=== PATIENT | male | born 1960 | race Caucasian/White ===

== ENCOUNTER → 2018-10-09 07:06 | Outpatient (CLI) | payer BC, SELFPAY ==
[2018-10-09 09:22] LABS: BUN Creatinine Ratio 21.3 (6-22); Blood Urea Nitrogen 17 mg/dL (9-20); Calcium 9.5 mg/dL (8.4-10.2); Carbon Dioxide 24 mmol/L (22-32); Chloride 104 mmol/L (98-107); Cholesterol 223 mg/dL (140-199); Estimated Glomerular Filt Rate > 60.0 mL/min (>60); Glucose 114 mg/dL (80-110); HDL Cholesterol 28 mg/dL (40-60); HEMOLYSIS < 15 (0-50); LDL Cholesterol Calculated 148 mg/dL (<100); Potassium 3.8 mmol/L (3.4-5.1); Sodium 138 mmol/L (137-145); Triglycerides 235 mg/dL (35-150)
[2018-10-09 09:47] LABS: Microalbumin Urine Random 6.3 mg/dL (0-1.6)
[2018-10-09 10:07] LABS: Microalbumi Creatinin Ratio Ur 13.9 ug/mg CR (<30)
[2018-10-09 10:08] LABS: Creatinine Urine Random 451.4 mg/dL
== END ==
PROVIDERS: PCP Registered Nurse; Visit Provider Registered Nurse
DX: I10 Essential (primary) hypertension (principal)
CPT/HCPCS: 36415; 80048; 80061; 82043; 82570

== ENCOUNTER → 2019-03-01 08:10 | Outpatient (CLI) | payer BC, SELFPAY ==
[2019-03-01 08:58] LABS: Cholesterol 116 mg/dL (140-199); HDL Cholesterol 28 mg/dL (40-60); LDL Cholesterol Calculated 52 mg/dL (<100); Triglycerides 178 mg/dL (35-150)
== END ==
PROVIDERS: Visit Provider Registered Nurse
DX: E78.5 Hyperlipidemia, unspecified (principal)
CPT/HCPCS: 36415; 80061

== ENCOUNTER → 2019-05-24 10:08 | Outpatient (CLI) | payer BC, OTHER, SELFPAY ==
[2019-05-24 11:10] LABS: Hemoglobin 16.3 g/dL (13.5-17.5); Mean Corpuscular HGB Conc 35.5 % (30-36); Mean Corpuscular Hemoglobin 30.2 PG (26-34); Platelet Count 163 X10^3/uL (150-400); Red Blood Cell Count 5.41 X10^6/uL (4.5-5.9); Red Cell Distribution Width 13.4 % (11.6-14.8); White Blood Cell Count 7.5 X10^3/uL (4.5-11.0)
[2019-05-24 11:59] LABS: Alanine Aminotransferase 49 IU/L (21-72); Albumin 4.8 g/dL (3.5-5.0); Albumin Globulin Ratio 1.8 (1.0-2.8); Alkaline Phosphatase 47 U/L (38-126); Aspartate Aminotransferase 34 IU/L (17-59); BUN Creatinine Ratio 16.3 (6-22); Bilirubin Total 0.6 mg/dL (0.2-1.3); Blood Urea Nitrogen 13 mg/dL (9-20); Calcium 10.4 mg/dL (8.4-10.2); Carbon Dioxide 28 mmol/L (22-32); Chloride 98 mmol/L (98-107); Estimated Glomerular Filt Rate > 60.0 mL/min (>60); Globulin 2.7 g/dL (1.7-4.1); Glucose 99 mg/dL (80-110); HEMOLYSIS < 15 (0-50); Potassium 4.4 mmol/L (3.4-5.1); Sodium 137 mmol/L (137-145); Total Protein 7.5 g/dL (6.3-8.2)
[2019-05-24 12:16] LABS: Vitamin D 25 Hydroxy (D3) 28.9 ng/mL (30.0-100.0)
== END ==
PROVIDERS: Visit Provider Student in an Organized Health Care Education/Training Program
DX: Z12.5 Encounter for screening for malignant neoplasm of prostate (principal); B18.2 Chronic viral hepatitis C; D75.1 Secondary polycythemia; E78.5 Hyperlipidemia, unspecified; I10 Essential (primary) hypertension; Z87.891 Personal history of nicotine dependence
CPT/HCPCS: 36415; 80053; 82306; 85027; G0103

== ENCOUNTER 2019-09-13 08:11 | Day surgery (SDC) | payer BC, OTHER, SELFPAY ==
[2019-09-13] MEDS: SODIUM CHLORIDE 0.9% 1,000 ML 200 ML IV (08:34)
[2019-09-13 08:40] VITALS: BP 117/80; PULSE 91; RESP 20; TEMP 36.6; O2SAT 96; BMI 30.4
--- NOTE | 2019-09-13 09:07 | PM.HP.1 ---
History of Present Illness History of Present Illness Date Patient Seen: 09/13/19 Time Patient Seen: 09:07 Chief complaint: [id number] Narrative: This is a 59-year-old man who has never had a screening colonoscopy. He denies any history of melena, hematochezia, unexplained abdominal pain, unexplained weight loss. He has been treated for hepatitis C and reportedly cleared. He has high blood pressure, polycythemia vera, high cholesterol, kidney stones, and has had an inguinal hernia repair. Says he is overall well, and denies any chest pain or other concerning symptoms at this time. ROS: Thirteen system review is otherwise negative other than as mentioned below and in HPI. PE: GENERAL: Well groomed and cooperative. Appears stated age. Answers questions promptly and appropriately. Vital signs noted. HENT: Normocephalic, atraumatic. Hearing intact. Oral mucosa is pink and moist. EYES: Conjunctiva pink, sclera white, no periorbital swelling. CARDIOVASCULAR: Regular rate. No pedal edema. RESPIRATORY: Non-tachypneic, breathing comfortably on room air. GASTROINTESTINAL: Abdomen soft and non-distended GENITALURINARY: No flank tenderness. MUSCULOSKELETAL: Equal tone and mass bilaterally. SKIN: Warm, dry, soft, appropriate color for ethnicity. No other lesions, rashes, or wounds. NEURO: Alert and Oriented X 3. No gross sensory deficits, or cognitive issues. PSYCH: Appropriate affect and mood. Patient History Medical History (Updated 09/13/19 @ 09:09 by Kasie Alvarado MD) Kidney stones (Inactive ~1986) Shoulder pain (Chronic) Surgical History (Updated 05/27/19 @ 22:12 by Reny Fleming) Anesthesia (Resolved) History of hernia repair (Resolved ~1964) History of hernia repair (Resolved ~1997) Family & Social History Social History: household members spouse Tobacco & Substance use: Smoking Status Former smoker alcohol intake former Meds Home Medications and Allergies Home Medications Medication Instructions Recorded Confirmed Type aspirin 650 mg tablet,delayed 650 mg PO QDAY PRN #0 03/04/19 09/13/19 History release ibuprofen 400 mg tablet 800 mg PO QDAY PRN #0 03/04/19 09/13/19 History rosuvastatin 20 mg tablet 20 mg PO DAILY #90 tab 05/07/19 09/13/19 Rx sildenafil 100 mg tablet 100 mg PO DAILY PRN #40 tab 05/24/19 09/13/19 Rx sodium,potassium,mag sulfates 17.5 177 ml PO DAILY #354 ml 08/19/19 09/13/19 Rx gram-3.13 gram-1.6 gram oral soln lisinopril 20 1 tab PO DAILY #90 tab 08/26/19 09/13/19 Rx mg-hydrochlorothiazide 25 mg tablet Allergies Allergy/AdvReac Type Severity Reaction Status Date / Time No Known Drug Allergies Allergy Verified 09/13/19 08:27 Exam Vital Signs (past 8 hours): - 09/13/19 08:40 Temperature 98 F Pulse Rate 91 H Respiratory Rate 20 Blood Pressure 117/80 Pulse Oximetry 96 Oxygen Delivery Method Room Air Assessment & Plan Assessment and plan (1) At average risk for colon cancer: Current visit: Yes Status: Acute (2) Encounter for screening colonoscopy: Current visit: Yes Status: Acute Assessment & Plan narrative: Risks and benefits of screening colonoscopy and possible polypectomy were discussed with the patient including risk of bleeding, perforation, need for additional procedures, risks of anesthesia. The patient desires to proceed with the colonoscopy procedure. Time Spent With Patient Time with patient: 15-24 minutes Quality VTE Deep Vein Thrombosis/Pulmonary Embolism Present on Admission: No
--- NOTE | 2019-09-13 09:12 | PM.OP.ENDO ---
Operative Date/Time/Diagnoses Date of procedure: 09/13/19 Time of procedure: 09:12 Pre-op diagnosis: Average risk for colon cancer, never had screening colonoscopy Post-op diagnosis: same (Normal colon) Procedure & Clinicians Study performed: Screening colonoscopy Same procedure as scheduled: Yes Indications: Average risk for colon cancer, never had a colonoscopy Surgeon: Kasie Alvarado Procedure Notes SCOAP/Timeout: Performed Procedure in detail: The patient was brought to the room and placed in left lateral decubitus position with all bony prominences padded. A time-out was performed and then the patient was given procedural sedation starting with 3 mg of Versed and 100 mcg of fentanyl. A total of 5 mg of Versed and 150 micro g of fentanyl were given for the entire procedure. Vitals were monitored throughout the procedure and remained stable. Once adequately sedated the procedure was begun. A rectal exam was performed revealing no abnormalities. The colonoscope was then introduced to the rectum and advanced to the cecum in the usual fashion. The cecum was identified by the appendiceal orifice, the mucosal tri-fold, and the ileocecal valve. The scope was then retracted while rotating side to side and examining each mucosal fold. At the conclusion of the procedure retroflexion was performed and small grade 1-2 internal hemorrhoids without stigmata of bleeding were seen. The scope was then withdrawn from the rectum the procedure was concluded. The patient tolerated the procedure well and was transferred to the PACU in stable condition. Scope withdrawal time: 8 Sedation minutes: 18 Specimen(s): none sent Complications: none Impression: Normal colon Post-procedure Recommendations: Colonscopy in 10 years Follow up: as needed Disposition: PACU
[2019-09-13] MEDS: fentaNYL 250 MCG/5 ML INJ IV (09:35)
[2019-09-13] MEDS: MIDAZOLAM 5 MG/5 ML VIAL IV (09:35)
[2019-09-13 09:36] VITALS: BP 104/76; PULSE 77; RESP 14; TEMP 36.6; O2SAT 91
[2019-09-13 09:41] VITALS: BP 108/73; PULSE 77; RESP 16; O2SAT 93
[2019-09-13 09:46] VITALS: BP 104/78; PULSE 78; RESP 15; O2SAT 92
[2019-09-13 09:52] VITALS: BP 98/71; PULSE 88; RESP 11; O2SAT 95
[2019-09-13 10:00] VITALS: BP 110/80; PULSE 80; RESP 12; TEMP 36.6; O2SAT 96
== END 2019-09-13 10:09 | disposition home or self-care (01) ==
PROVIDERS: PCP Student in an Organized Health Care Education/Training Program; Referring Provider Surgery; Visit Provider Surgery
PROC: 0DJD8ZZ Inspection of Lower Intestinal Tract, Via Natural or Artificial Opening Endoscopic (ICD-10-PCS; CPT 45378; principal; 2019-09-13 09:15)
DX: Z12.11 Encounter for screening for malignant neoplasm of colon (principal); K64.0 First degree hemorrhoids
CPT/HCPCS: 45378; 99152; J2250; J3010

== ENCOUNTER → 2020-11-11 14:46 | Outpatient (CLI) | payer BC, OTHER, SELFPAY ==
[2020-11-11] MEDS: COVID-19 VACC #1, MRNA(MOD) 100 MCG/0.5 ML VIAL IM (15:01)
== END ==
PROVIDERS: PCP Student in an Organized Health Care Education/Training Program; Visit Provider Internal Medicine
DX: Z23 Encounter for immunization (principal)
CPT/HCPCS: 0011A; 91301

== ENCOUNTER → 2020-12-09 14:33 | Outpatient (CLI) | payer BC, OTHER, SELFPAY ==
[2020-12-09] MEDS: COVID-19 VACC #2, MRNA(MOD) 100 MCG/0.5 ML VIAL IM (14:39)
== END ==
PROVIDERS: PCP Student in an Organized Health Care Education/Training Program; Visit Provider Internal Medicine
DX: Z23 Encounter for immunization (principal)
CPT/HCPCS: 0012A; 91301

== ENCOUNTER → 2021-01-30 09:45 | Outpatient (CLI) | payer BC, OTHER, SELFPAY ==
--- NOTE | 2021-01-30 09:47 | DI.RAD.S_ITS ---
PROCEDURE: XR LUMBAR SPINE 2-3V INDICATIONS: back pain TECHNIQUE: To views of the lumbar spine were acquired. COMPARISON: None. FINDINGS: Bones: 5 [id number] vertebrae are present. There is normal bony alignment. No vertebral body compression fractures. No suspicious bony lesions. Lower lumbar facet arthropathy. Soft tissues: Overlying bowel gas pattern is normal. No suspicious soft tissue calcifications. Aortic atherosclerosis IMPRESSION: Lower lumbar facet arthropathy. No evidence acute bony abnormality of the lumbar spine. If clinical suspicion and/or symptoms persist, further assessment with repeat plain films, or advanced imaging (e.g., CT, MRI, or bone scan) may be helpful for further assessment. Dictated by: Fadi Bermeo M.D. on 01/30/2021 at 9:10 Approved by: Fadi Bermeo M.D. on 01/30/2021 at 9:13
== END ==
PROVIDERS: PCP Student in an Organized Health Care Education/Training Program; Referring Provider Physician Assistant; Visit Provider Physician Assistant
DX: M54.9 Dorsalgia, unspecified (principal); M47.816 Spondylosis without myelopathy or radiculopathy, lumbar region
CPT/HCPCS: 72100

== ENCOUNTER → 2021-04-17 14:16 | Outpatient (CLI) | payer BC, OTHER, SELFPAY ==
--- NOTE | 2021-04-17 14:17 | DI.MRI.S_ITS ---
PROCEDURE: MR LUMBAR SPINE WO CON INDICATIONS: Sciatica, right side TECHNIQUE: Noncontrast sagittal T1 spin echo and T2 fast echo, sagittal STIR, axial T1 and T2 fast spin echo through the lumbar spine. In cases with scoliosis, additional coronal T2 fast spin echo may be performed. COMPARISON: [facility], CR, XR LUMBAR SPINE 2-3V, 01/30/2021, 9:48. FINDINGS: Image quality: Excellent. Alignment and Curvature: There is normal bony alignment. Bone Marrow: Marrow is of normal overall signal. Increased T1 and T2 signal is present at L1 most suggestive of hemangioma. No acute vertebral body compression fractures. Spinal Cord: Conus medullaris terminates at the L1 level. Visualized cord demonstrates normal signal and size. Paraspinous Soft Tissues: No paravertebral masses. Discs: Mild desiccation is present throughout the lumbar spine. L1-L2: Minimal disc bulge without spinal stenosis or foraminal narrowing. Facet and ligamentum flavum hypertrophy as well as minimal epidural lipomatosis is present. L2-L3: No disc bulge, spinal stenosis or foraminal narrowing. Mild facet and ligamentum flavum hypertrophy as well as minimal epidural lipomatosis is present. L3-L4: Minimal disc bulge without spinal stenosis. Mild bilateral foraminal narrowing with facet and ligamentum flavum hypertrophy. Mild epidural lipomatosis. L4-L5: Minimal disc bulge without spinal stenosis. Minimal bilateral foraminal narrowing with facet and ligamentum flavum hypertrophy. L5-S1: Mild disc bulge with posterior right posterior paracentral extrusion measuring approximately 1.5 cm compromising the exiting nerve roots. There is indentation on the anterior thecal sac. Mild bilateral foraminal narrowing with facet hypertrophy. IMPRESSION: 1. L5-S1 right posterior paracentral extrusion as above. 2. Multilevel minimal to mild foraminal narrowing secondary to early changes of facet arthropathy. Dictated by: Uyen Disla M.D. on 04/19/2021 at 9:08 Approved by: Uyen Disla M.D. on 04/19/2021 at 9:12
== END ==
PROVIDERS: PCP Student in an Organized Health Care Education/Training Program; Referring Provider Student in an Organized Health Care Education/Training Program; Visit Provider Student in an Organized Health Care Education/Training Program
DX: M51.17 Intervertebral disc disorders with radiculopathy, lumbosacral region (principal); M47.26 Other spondylosis with radiculopathy, lumbar region; M47.27 Other spondylosis with radiculopathy, lumbosacral region; M48.061 Spinal stenosis, lumbar region without neurogenic claudication; M48.07 Spinal stenosis, lumbosacral region
CPT/HCPCS: 72148

== ENCOUNTER 2021-11-04 16:45 | Outpatient (RCR) | payer BC, OTHER, SELFPAY ==
--- NOTE | 2021-10-20 17:30 | PT.OIE ---
Current Diagnoses Stiffness of other specified joint, not elsewhere classified (10/20/21) Intervertebral disc disorders with radiculopathy, lumbar region (10/20/21) Sciatica, right side (10/20/21) Past Medical History (Last Reviewed 08/03/20 @ 09:49 by HILDA Edomnds) History of hernia repair (~1964) History of hernia repair (~1997) Kidney stones (~1986) Shoulder pain Past Surgical History (Last Reviewed 08/03/20 @ 09:49 by HILDA Edmonds) Anesthesia History of hernia repair (~1964) History of hernia repair (~1997) Visit Care Team Role Provider Type Jey Rothman MD Attending Provider Physician Family Provider Primary Care Provider Referring Provider Specialty: Internal Medicine Address: [address] [place] [address], [address], [facility] Email: [email or web address] Physical Therapy Initial Evaluation PT-OP-A Visit Information Start: 10/20/21 17:32 Freq: Status: Active Protocol: Document 10/20/21 16:45 DCW (Rec: 10/20/21 17:36 DC [id number]) Out-Patient Physical Therapy Visit Information Visit Information Visit Type Initial Evaluation Visit Start Time 16:45 Visit Stop Time 17:30 Total Visit Minutes 45 Visit Number 1 Number of JANITOR HEAD Visits 0 Evaluation Information Evaluation Date 10/20/21 PT-OP-B Current Condition Start: 10/20/21 17:32 Freq: Status: Active Protocol: Document 10/20/21 16:45 DCW (Rec: 10/20/21 17:47 DC [id number]) Current Condition History of Current Condition Onset Date 3-4 year history Current Complaints Low back pain with right sciatica History of Current Condition Pt is a 61 year old male presenting with a multi-year history of low back pain. Pt notes that his pain began 3-4 years ago, but last fall became substantially worse. His PCP referred him to Dr Almanzar, who ordered an MRI, and, per pt, found a bulging disc at L5. Pt was referred to PT, however has had difficulty scheduling appointments, notes it has probable been 2-3 months, and in the mean time, has gotten significantly better with a combination of steroid injections and using gabapentin. Pt is now 2-3/10, down from 7-8/10. Notes he frequently has to change positions, going from sitting to standing and back after ~30 minutes. Notes he is unable to lay in any position except for left sidelying due to back pain. Treatment Goals Patient/Caregiver Goals I want to be able to geet out in the yard and do some work without worrying about back pain. PT-OP-C Subjective Start: 10/20/21 17:32 Freq: Status: Active Protocol: Document 10/20/21 16:45 DCW (Rec: 10/20/21 17:36 DCW [id number]) OP-PT Subjective Patient Comments Patient Comments It doesn't stop me from doing anything, it's just more an issue of how much I want to hurt afterward. Patient Questionnaires Oswestry Low Back Index Oswestry Score 50 = 24% Oswestry Impairment 20 to 39% Impaired (Score 20- 39) OP-PT Pain Assessment Pain Assessment Grid Paper Pain Assessment Grid Completed Yes Location Right Lower Back Intensity 2 Scale Used Numeric (0 - 10) Description Aching,Sharp,Shooting Radiating Location Radiates into posterior thigh, can get down as low as posterior calf Pain Aggravating Factors Position,Standing,Sitting, Stair Climbing PT-OP-F Manual Assessment Start: 10/20/21 17:32 Freq: Status: Active Protocol: Document 10/20/21 16:45 DCW (Rec: 10/20/21 17:51 DCW [id number]) Manual Assessments Soft Tissue Assessment Soft Tissue Mobility Assessment Hypertonia and tenderness to palpation 2/4: Pain with wincing at R QL, R lumbar paraspinals PT-OP-K Range of Motion Start: 10/20/21 17:32 Freq: Status: Active Protocol: Document 10/20/21 16:45 DCW (Rec: 10/20/21 17:51 DCW [id number]) Lumbar Spine Range of Motion Lumbar Spine Active Degrees Testing Position Standing Flexion 55 Extension 30 Lateral Flexion Left 49 Lateral Flexion Right 57 Comments Lateral flexion measured in cm from fingertips to floor PT-OP-L Special Tests Start: 10/20/21 17:32 Freq: Status: Active Protocol: Document 10/20/21 16:45 DCW (Rec: 10/20/21 17:51 DCW [id number]) Special Tests Lumbar Spine Special Tests EMILY Test Results Negative Straight Leg Raise Test Results Negative Slump Test Results Positive R Manual Traction Test Results Immediate pain relief Compression Test Results Positive R A-P Shearing Test Results Negative PT-OP-M Strength Start: 10/20/21 17:32 Freq: Status: Active Protocol: Document 10/20/21 16:45 DCW (Rec: 10/20/21 17:51 DCW [id number]) Hip Strength Hip Manual Muscle Testing Right Flexion (L2) 4- Good- Abduction 4+ Good+ Adduction 4- Good- External Rotation 4+ Good+ Internal Rotation 5 Normal Comments C/o pain with resisted R flexion and ER Left Flexion (L2) 4+ Good+ Abduction 4+ Good+ Adduction 4 Good External Rotation 5 Normal Internal Rotation 5 Normal PT-OP-Q Treatments Start: 10/20/21 17:32 Freq: Status: Active Protocol: Document 10/20/21 16:45 DCW (Rec: 10/20/21 17:36 DCW [id number]) Manual Therapy Treatment Soft Tissue Mobilization 1 Body Location R QL Mobilization Type Sustained Pressure,Trigger Point Release Intensity/Depth Moderate Body Position Sidelying PT-OP-T Assessment and Plan Start: 10/20/21 17:32 Freq: Status: Active Protocol: Document 10/20/21 16:45 DCW (Rec: 10/21/21 09:45 DCW [id number]) Physical Therapy Assessment Rehab Potential Rehabilitation Potential Good Evaluation Complexity Number of Personal Factors/Comorbidities 1-2 Number of Body Systems Impaired 3 Clinical Presentation at Evaluation Stable Impairments Impairments Activity Tolerance,Functional Activities,Functional Mobility ,Pain,ROM,Soft Tissue Mobility ,Strength,Tone Goals Two Impairment Pt has to change positions every 30-45 minutes due to pain Wood Machinist Goal (LTG) Pt to be able to tolerate standing for >2 hours in order to perform yard work LTG Duration 12/21/21 One Impairment Pt does not have an appropriate home exercise program Short Term Goal (STG) Pt to be independent and compliant with an appropriate HEP STG Duration 11/20/21 Assessment Summary Assessment Pt presents with signs and symptoms consistent with his referring diagnosis. Pt showing radicular symptoms, likely secondary to reported disc bulge, QL tightness, decreased lumbar ROM, and some mild R LE weakness. Pt should benefit from skilled therapy focusing on LE and core strengthening, decreased muscle tone, improved activity tolerance, improved sleeping positioning, and lumbar traction. Physical Therapy Plan Frequency and Duration Frequency of Treatment 2x/Week Duration of Treatment Two months Plan of Care Start Date 10/20/21 Plan of Care End Date 12/20/21 Therapeutic Interventions Therapeutic Interventions Aquatic Therapy,Home Exercise Program,Joint Mobilizations, Manual Therapy,Neuromuscular Re-education,Patient/Caregiver Education,Self-Care/Home Management,Soft Tissue Mobilization,Therapeutic Activities,Therapeutic Exercises Modalities Cold Pack/Ice Massage,Electric Stimulation,Hot Packs, Traction- Mechanical, Ultrasound Next Visit Focus/Plan Next Note Type Treatment Note Next Visit Plan LE/core strengthening, lumbar traction
--- NOTE | 2021-10-20 17:30 | PT.OPPOC ---
Physical, Occupational & Speech Therapy At [facility] Current Diagnoses Stiffness of other specified joint, not elsewhere classified (10/20/21) Intervertebral disc disorders with radiculopathy, lumbar region (10/20/21) Sciatica, right side (10/20/21) Visit Care Team Role Provider Type Jey Rothman MD Attending Provider Physician Family Provider Primary Care Provider Referring Provider Specialty: Internal Medicine Address: [address] [place] [address], [facility] [address], [place], [address] Email: [email or web address] Plan Of Care PT-OP-T Assessment and Plan Start: 10/20/21 17:32 Freq: Status: Active Protocol: Document 10/20/21 16:45 DCW (Rec: 10/21/21 09:45 DCW [id number]) Physical Therapy Assessment Rehab Potential Rehabilitation Potential Good Evaluation Complexity Number of Personal Factors/Comorbidities 1-2 Number of Body Systems Impaired 3 Clinical Presentation at Evaluation Stable Impairments Impairments Activity Tolerance,Functional Activities,Functional Mobility ,Pain,ROM,Soft Tissue Mobility ,Strength,Tone Goals Two Impairment Pt has to change positions every 30-45 minutes due to pain Marine Specialist Goal (LTG) Pt to be able to tolerate standing for >2 hours in order to perform yard work LTG Duration 12/21/21 One Impairment Pt does not have an appropriate home exercise program Short Term Goal (STG) Pt to be independent and compliant with an appropriate HEP STG Duration 11/20/21 Assessment Summary Assessment Pt presents with signs and symptoms consistent with his referring diagnosis. Pt showing radicular symptoms, likely secondary to reported disc bulge, QL tightness, decreased lumbar ROM, and some mild R LE weakness. Pt should benefit from skilled therapy focusing on LE and core strengthening, decreased muscle tone, improved activity tolerance, improved sleeping positioning, and lumbar traction. Physical Therapy Plan Frequency and Duration Frequency of Treatment 2x/Week Duration of Treatment Two months Plan of Care Start Date 10/20/21 Plan of Care End Date 12/20/21 Therapeutic Interventions Therapeutic Interventions Aquatic Therapy,Home Exercise Program,Joint Mobilizations, Manual Therapy,Neuromuscular Re-education,Patient/Caregiver Education,Self-Care/Home Management,Soft Tissue Mobilization,Therapeutic Activities,Therapeutic Exercises Modalities Cold Pack/Ice Massage,Electric Stimulation,Hot Packs, Traction- Mechanical, Ultrasound Next Visit Focus/Plan Next Note Type Treatment Note Next Visit Plan LE/core strengthening, lumbar traction Plan of Care Dates Plan of Care Start Date 10/20/21 Plan of Care End Date 12/20/21 Electronically Signed by: Mamadou Medrano, PT 10/21/21 0945 Please Sign and Return: I have reviewed this Plan of Care and certify that the skilled therapy services above are required to meet the patient?s needs. Physician Signature Date Printed Name and Credentials Clinical Instructor Signature Printed Name and Credentials
--- NOTE | 2021-10-26 17:39 | PT.OTN ---
Current Diagnoses Stiffness of other specified joint, not elsewhere classified (10/26/21) Sciatica, right side (10/26/21) Physical Therapy Treatment Note PT-OP-A Visit Information Start: 10/20/21 17:32 Freq: Status: Active Protocol: Document 10/26/21 16:45 DCW (Rec: 10/26/21 17:39 DCW [id number]) Out-Patient Physical Therapy Visit Information Visit Information Visit Type Treatment Note Visit Start Time 16:45 Visit Stop Time 17:30 Total Visit Minutes 45 Visit Number 2 Number of HEAVY DUTY MECHANIC Visits 0 Evaluation Information Evaluation Date 10/20/21 PT-OP-B Current Condition Start: 10/20/21 17:32 Freq: Status: Active Protocol: Document 10/20/21 16:45 DCW (Rec: 10/20/21 17:47 DCW [id number]) Current Condition History of Current Condition Onset Date 3-4 year history Current Complaints Low back pain with right sciatica History of Current Condition Pt is a 61 year old male presenting with a multi-year history of low back pain. Pt notes that his pain began 3-4 years ago, but last fall became substantially worse. His PCP referred him to Dr Almanzar, who ordered an MRI, and, per pt, found a bulging disc at L5. Pt was referred to PT, however has had difficulty scheduling appointments, notes it has probable been 2-3 months, and in the mean time, has gotten significantly better with a combination of steroid injections and using gabapentin. Pt is now 2-3/10, down from 7-8/10. Notes he frequently has to change positions, going from sitting to standing and back after ~30 minutes. Notes he is unable to lay in any position except for left sidelying due to back pain. Treatment Goals Patient/Caregiver Goals I want to be able to geet out in the yard and do some work without worrying about back pain. PT-OP-C Subjective Start: 10/20/21 17:32 Freq: Status: Active Protocol: Document 10/26/21 16:45 DCW (Rec: 10/26/21 17:39 DCW [id number]) OP-PT Subjective Patient Comments Patient Comments It's been alright. It's a constant dhaliwal, but it's pretty minor right now. PT-OP-F Manual Assessment Start: 10/20/21 17:32 Freq: Status: Active Protocol: Document 10/20/21 16:45 DCW (Rec: 10/20/21 17:51 DCW [id number]) Manual Assessments Soft Tissue Assessment Soft Tissue Mobility Assessment Hypertonia and tenderness to palpation 2/4: Pain with wincing at R QL, R lumbar paraspinals PT-OP-K Range of Motion Start: 10/20/21 17:32 Freq: Status: Active Protocol: Document 10/20/21 16:45 DCW (Rec: 10/20/21 17:51 DCW [id number]) Lumbar Spine Range of Motion Lumbar Spine Active Degrees Testing Position Standing Flexion 55 Extension 30 Lateral Flexion Left 49 Lateral Flexion Right 57 Comments Lateral flexion measured in cm from fingertips to floor PT-OP-L Special Tests Start: 10/20/21 17:32 Freq: Status: Active Protocol: Document 10/20/21 16:45 DCW (Rec: 10/20/21 17:51 DCW [id number]) Special Tests Lumbar Spine Special Tests EMILY Test Results Negative Straight Leg Raise Test Results Negative Slump Test Results Positive R Manual Traction Test Results Immediate pain relief Compression Test Results Positive R A-P Shearing Test Results Negative PT-OP-M Strength Start: 10/20/21 17:32 Freq: Status: Active Protocol: Document 10/20/21 16:45 DCW (Rec: 10/20/21 17:51 DCW [id number]) Hip Strength Hip Manual Muscle Testing Right Flexion (L2) 4- Good- Abduction 4+ Good+ Adduction 4- Good- External Rotation 4+ Good+ Internal Rotation 5 Normal Comments C/o pain with resisted R flexion and ER Left Flexion (L2) 4+ Good+ Abduction 4+ Good+ Adduction 4 Good External Rotation 5 Normal Internal Rotation 5 Normal PT-OP-Q Treatments Start: 10/20/21 17:32 Freq: Status: Active Protocol: Document 10/26/21 16:45 DCW (Rec: 10/26/21 17:39 DCW [id number]) Cardio Equipment Recumbent Elliptical (BiodHydro-Run) Duration (Minutes) 4 Resistance 6 Seat Position 10 Gym Equipment Therapeutic Ball 2 Exercise Details Bridging /c feet on ball Ball Size/Color Red - 55 cm 1 Exercise Details LTR Ball Size/Color Red - 55 cm Body Position Supine Therapeutic Exercises Sidelying Exercises 3 Sidelying Exercise Name Reverse Clamshell Side bilateral 2 Sidelying Exercise Name Clamshell Side bilateral 1 Sidelying Exercise Name Open Book Side bilateral Manual Therapy Treatment Soft Tissue Mobilization 1 Body Location R QL Mobilization Type Sustained Pressure,Trigger Point Release Intensity/Depth Moderate Body Position Sidelying PT-OP-T Assessment and Plan Start: 10/20/21 17:32 Freq: Status: Active Protocol: Document 10/26/21 16:45 DCW (Rec: 10/26/21 17:39 DCW [id number]) Physical Therapy Assessment Impairments Impairments Activity Tolerance,Functional Activities,Functional Mobility ,Pain,ROM,Soft Tissue Mobility ,Strength,Tone Goals Two Impairment Pt has to change postions every 30-45 minutes due to pain Hydroblaster Goal (LTG) Pt to be able to tolerate standing for >2 hours in order to perform yard work LTG Duration 12/21/21 One Impairment Pt does not have an appropriate home exercise program Short Term Goal (STG) Pt to be independent and compliant with an appropriate HEP STG Duration 11/20/21 Assessment Summary Assessment Pt tolerated treatment well today, noted he felt it with hip strengthening exercises and lumbar rotation, but felt he had loosened up by end of session. Physical Therapy Plan Frequency and Duration Frequency of Treatment 2x/Week Duration of Treatment Two months Plan of Care Start Date 10/20/21 Plan of Care End Date 12/20/21 Therapeutic Interventions Therapeutic Interventions Aquatic Therapy,Home Exercise Program,Joint Mobilizations, Manual Therapy,Neuromuscular Re-education,Patient/Caregiver Education,Self-Care/Home Management,Soft Tissue Mobilization,Therapeutic Activities,Therapeutic Exercises Modalities Cold Pack/Ice Massage,Electric Stimulation,Hot Packs, Traction- Mechanical, Ultrasound Next Visit Focus/Plan Next Note Type Treatment Note Next Visit Plan LE/core strengthening, lumbar traction
--- NOTE | 2021-10-28 16:46 | PT.OTN ---
Current Diagnoses Stiffness of other specified joint, not elsewhere classified (10/28/21) Sciatica, right side (10/28/21) Physical Therapy Treatment Note PT-OP-A Visit Information Start: 10/20/21 17:32 Freq: Status: Active Protocol: Document 10/28/21 16:00 DCW (Rec: 10/28/21 16:46 DCW [id number]) Out-Patient Physical Therapy Visit Information Visit Information Visit Type Treatment Note Visit Start Time 16:00 Visit Stop Time 16:45 Total Visit Minutes 45 Visit Number 3 Number of PIERCE AND SHAVE PRESS OPERATOR Visits 0 Evaluation Information Evaluation Date 10/20/21 PT-OP-B Current Condition Start: 10/20/21 17:32 Freq: Status: Active Protocol: Document 10/20/21 16:45 DCW (Rec: 10/20/21 17:47 DCW [id number]) Current Condition History of Current Condition Onset Date 3-4 year history Current Complaints Low back pain with right sciatica History of Current Condition Pt is a 61 year old male presenting with a multi-year history of low back pain. Pt notes that his pain began 3-4 years ago, but last fall became substantially worse. His PCP referred him to Dr Almanzar, who ordered an MRI, and, per pt, found a bulging disc at L5. Pt was referred to PT, however has had difficulty scheduling appointments, notes it has probable been 2-3 months, and in the mean time, has gotten significantly better with a combination of steroid injections and using gabapentin. Pt is now 2-3/10, down from 7-8/10. Notes he frequently has to change positions, going from sitting to standing and back after ~30 minutes. Notes he is unable to lay in any position except for left sidelying due to back pain. Treatment Goals Patient/Caregiver Goals I want to be able to geet out in the yard and do some work without worrying about back pain. PT-OP-C Subjective Start: 10/20/21 17:32 Freq: Status: Active Protocol: Document 10/28/21 16:00 DCW (Rec: 10/28/21 16:46 DCW [id number]) OP-PT Subjective Patient Comments Patient Comments I'm pretty good right now, actually. PT-OP-F Manual Assessment Start: 10/20/21 17:32 Freq: Status: Active Protocol: Document 10/20/21 16:45 DCW (Rec: 10/20/21 17:51 DCW [id number]) Manual Assessments Soft Tissue Assessment Soft Tissue Mobility Assessment Hypertonia and tenderness to palpation 2/4: Pain with wincing at R QL, R lumbar paraspinals PT-OP-K Range of Motion Start: 10/20/21 17:32 Freq: Status: Active Protocol: Document 10/20/21 16:45 DCW (Rec: 10/20/21 17:51 DCW [id number]) Lumbar Spine Range of Motion Lumbar Spine Active Degrees Testing Position Standing Flexion 55 Extension 30 Lateral Flexion Left 49 Lateral Flexion Right 57 Comments Lateral flexion measured in cm from fingertips to floor PT-OP-L Special Tests Start: 10/20/21 17:32 Freq: Status: Active Protocol: Document 10/20/21 16:45 DCW (Rec: 10/20/21 17:51 DCW [id number]) Special Tests Lumbar Spine Special Tests EMILY Test Results Negative Straight Leg Raise Test Results Negative Slump Test Results Positive R Manual Traction Test Results Immediate pain relief Compression Test Results Positive R A-P Shearing Test Results Negative PT-OP-M Strength Start: 10/20/21 17:32 Freq: Status: Active Protocol: Document 10/20/21 16:45 DCW (Rec: 10/20/21 17:51 DCW [id number]) Hip Strength Hip Manual Muscle Testing Right Flexion (L2) 4- Good- Abduction 4+ Good+ Adduction 4- Good- External Rotation 4+ Good+ Internal Rotation 5 Normal Comments C/o pain with resisted R flexion and ER Left Flexion (L2) 4+ Good+ Abduction 4+ Good+ Adduction 4 Good External Rotation 5 Normal Internal Rotation 5 Normal PT-OP-Q Treatments Start: 10/20/21 17:32 Freq: Status: Active Protocol: Document 10/28/21 16:00 DCW (Rec: 10/28/21 16:46 DCW [id number]) Cardio Equipment Recumbent Elliptical (Biodex) Duration (Minutes) 5 Resistance 6 Seat Position 10 Gym Equipment Therapeutic Ball 3 Exercise Details Resisted hip/knee flexion Ball Size/Color Red - 55 cm Lv 3 T-band 1 Exercise Details LTR Ball Size/Color Red - 55 cm Body Position Supine Therapeutic Exercises Other Exercises 1 Other Exercise Name Cat/Camel Reps/Minutes 5 hold x5 Manual Therapy Treatment Soft Tissue Mobilization 1 Body Location R QL Mobilization Type Sustained Pressure,Trigger Point Release Intensity/Depth Moderate Body Position Sidelying Manual Traction Lumbar Details /c strap Body Position Hooklying PT-OP-T Assessment and Plan Start: 10/20/21 17:32 Freq: Status: Active Protocol: Document 10/28/21 16:00 DCW (Rec: 10/28/21 16:46 DCW [id number]) Physical Therapy Assessment Impairments Impairments Activity Tolerance,Functional Activities,Functional Mobility ,Pain,ROM,Soft Tissue Mobility ,Strength,Tone Goals Two Impairment Pt has to change postions every 30-45 minutes due to pain Reel Cutter Goal (LTG) Pt to be able to tolerate standing for >2 hours in order to perform yard work LTG Duration 12/21/21 One Impairment Pt does not have an appropriate home exercise program Short Term Goal (STG) Pt to be independent and compliant with an appropriate HEP STG Duration 11/20/21 Assessment Summary Assessment Pt doing well today, limited complaints of pain or difficulty, good response to manual traction Physical Therapy Plan Frequency and Duration Frequency of Treatment 2x/Week Duration of Treatment Two months Plan of Care Start Date 10/20/21 Plan of Care End Date 12/20/21 Therapeutic Interventions Therapeutic Interventions Aquatic Therapy,Home Exercise Program,Joint Mobilizations, Manual Therapy,Neuromuscular Re-education,Patient/Caregiver Education,Self-Care/Home Management,Soft Tissue Mobilization,Therapeutic Activities,Therapeutic Exercises Modalities Cold Pack/Ice Massage,Electric Stimulation,Hot Packs, Traction- Mechanical, Ultrasound Next Visit Focus/Plan Next Note Type Treatment Note Next Visit Plan LE/core strengthening, lumbar traction
--- NOTE | 2021-11-02 17:37 | PT.OTN ---
Current Diagnoses Stiffness of other specified joint, not elsewhere classified (11/02/21) Sciatica, right side (11/02/21) Physical Therapy Treatment Note PT-OP-A Visit Information Start: 10/20/21 17:32 Freq: Status: Active Protocol: Document 11/02/21 16:45 DCW (Rec: 11/02/21 17:37 DCW [id number]) Out-Patient Physical Therapy Visit Information Visit Information Visit Type Treatment Note Visit Start Time 16:45 Visit Stop Time 17:30 Total Visit Minutes 45 Visit Number 4 Number of CORRECTIONAL CASE RECORDS SUPERVISOR Visits 0 Evaluation Information Evaluation Date 10/20/21 PT-OP-B Current Condition Start: 10/20/21 17:32 Freq: Status: Active Protocol: Document 10/20/21 16:45 DCW (Rec: 10/20/21 17:47 DCW [id number]) Current Condition History of Current Condition Onset Date 3-4 year history Current Complaints Low back pain with right sciatica History of Current Condition Pt is a 61 year old male presenting with a multi-year history of low back pain. Pt notes that his pain began 3-4 years ago, but last fall became substantially worse. His PCP referred him to Dr Almanzar, who ordered an MRI, and, per pt, found a bulging disc at L5. Pt was referred to PT, however has had difficulty scheduling appointments, notes it has probable been 2-3 months, and in the mean time, has gotten significantly better with a combination of steroid injections and using gabapentin. Pt is now 2-3/10, down from 7-8/10. Notes he frequently has to change positions, going from sitting to standing and back after ~30 minutes. Notes he is unable to lay in any position except for left sidelying due to back pain. Treatment Goals Patient/Caregiver Goals I want to be able to geet out in the yard and do some work without worrying about back pain. PT-OP-C Subjective Start: 10/20/21 17:32 Freq: Status: Active Protocol: Document 11/02/21 16:45 DCW (Rec: 11/02/21 17:37 DCW [id number]) OP-PT Subjective Patient Comments Patient Comments Pt notes he was fairly sore after starting some spring yard work over the weekend, notes he has some soreness in his shoulders. PT-OP-F Manual Assessment Start: 10/20/21 17:32 Freq: Status: Active Protocol: Document 10/20/21 16:45 DCW (Rec: 10/20/21 17:51 DCW [id number]) Manual Assessments Soft Tissue Assessment Soft Tissue Mobility Assessment Hypertonia and tenderness to palpation 2/4: Pain with wincing at R QL, R lumbar paraspinals PT-OP-K Range of Motion Start: 10/20/21 17:32 Freq: Status: Active Protocol: Document 10/20/21 16:45 DCW (Rec: 10/20/21 17:51 DCW [id number]) Lumbar Spine Range of Motion Lumbar Spine Active Degrees Testing Position Standing Flexion 55 Extension 30 Lateral Flexion Left 49 Lateral Flexion Right 57 Comments Lateral flexion measured in cm from fingertips to floor PT-OP-L Special Tests Start: 10/20/21 17:32 Freq: Status: Active Protocol: Document 10/20/21 16:45 DCW (Rec: 10/20/21 17:51 DCW [id number]) Special Tests Lumbar Spine Special Tests EMILY Test Results Negative Straight Leg Raise Test Results Negative Slump Test Results Positive R Manual Traction Test Results Immediate pain relief Compression Test Results Positive R A-P Shearing Test Results Negative PT-OP-M Strength Start: 10/20/21 17:32 Freq: Status: Active Protocol: Document 10/20/21 16:45 DCW (Rec: 10/20/21 17:51 DCW [id number]) Hip Strength Hip Manual Muscle Testing Right Flexion (L2) 4- Good- Abduction 4+ Good+ Adduction 4- Good- External Rotation 4+ Good+ Internal Rotation 5 Normal Comments C/o pain with resisted R flexion and ER Left Flexion (L2) 4+ Good+ Abduction 4+ Good+ Adduction 4 Good External Rotation 5 Normal Internal Rotation 5 Normal PT-OP-Q Treatments Start: 10/20/21 17:32 Freq: Status: Active Protocol: Document 11/02/21 16:45 DCW (Rec: 11/02/21 17:37 DCW [id number]) Cardio Equipment Recumbent Elliptical (Biodex) Duration (Minutes) 5 Resistance 6 Seat Position 10 Gym Equipment Therapeutic Ball 4 Exercise Details Wall squats Ball Size/Color Red - 55 cm Body Position Standing 3 Exercise Details Resisted hip/knee flexion Ball Size/Color Red - 55 cm Lv 3 T-band 1 Exercise Details LTR Ball Size/Color Red - 55 cm Body Position Supine Therapeutic Exercises Supine Exercises 2 Supine Exercise Name Bridging /c add ball squeeze 1 Supine Exercise Name Foam Roll Comments Pec stretch, Opposite UE/LE lifts Manual Therapy Treatment Soft Tissue Mobilization 1 Body Location R QL Mobilization Type Sustained Pressure,Trigger Point Release Intensity/Depth Moderate Body Position Sidelying Manual Traction Lumbar Details /c strap Body Position Hooklying PT-OP-T Assessment and Plan Start: 10/20/21 17:32 Freq: Status: Active Protocol: Document 11/02/21 16:45 DCW (Rec: 11/02/21 17:37 DCW [id number]) Physical Therapy Assessment Impairments Impairments Activity Tolerance,Functional Activities,Functional Mobility ,Pain,ROM,Soft Tissue Mobility ,Strength,Tone Goals Two Impairment Pt has to change postions every 30-45 minutes due to pain Health And Safety Instructor Goal (LTG) Pt to be able to tolerate standing for >2 hours in order to perform yard work LTG Duration 12/21/21 One Impairment Pt does not have an appropriate home exercise program Short Term Goal (STG) Pt to be independent and compliant with an appropriate HEP STG Duration 11/20/21 Assessment Summary Assessment Pt showing good improvement with mobility and pain, still fairly high tone in QL bilaterally. Physical Therapy Plan Frequency and Duration Frequency of Treatment 2x/Week Duration of Treatment Two months Plan of Care Start Date 10/20/21 Plan of Care End Date 12/20/21 Therapeutic Interventions Therapeutic Interventions Aquatic Therapy,Home Exercise Program,Joint Mobilizations, Manual Therapy,Neuromuscular Re-education,Patient/Caregiver Education,Self-Care/Home Management,Soft Tissue Mobilization,Therapeutic Activities,Therapeutic Exercises Modalities Cold Pack/Ice Massage,Electric Stimulation,Hot Packs, Traction- Mechanical, Ultrasound Next Visit Focus/Plan Next Note Type Treatment Note Next Visit Plan LE/core strengthening, lumbar traction
--- NOTE | 2021-11-04 17:30 | PT.OTN ---
Current Diagnoses Stiffness of other specified joint, not elsewhere classified (11/04/21) Sciatica, right side (11/04/21) Physical Therapy Treatment Note PT-OP-A Visit Information Start: 10/20/21 17:32 Freq: Status: Active Protocol: Document 11/04/21 16:45 DCW (Rec: 11/04/21 17:30 DCW [id number]) Out-Patient Physical Therapy Visit Information Visit Information Visit Type Treatment Note Visit Start Time 16:45 Visit Stop Time 17:30 Total Visit Minutes 45 Visit Number 5 Number of DRY CLEANER PRESSER Visits 0 Evaluation Information Evaluation Date 10/20/21 PT-OP-B Current Condition Start: 10/20/21 17:32 Freq: Status: Active Protocol: Document 10/20/21 16:45 DCW (Rec: 10/20/21 17:47 DCW [id number]) Current Condition History of Current Condition Onset Date 3-4 year history Current Complaints Low back pain with right sciatica History of Current Condition Pt is a 61 year old male presenting with a multi-year history of low back pain. Pt notes that his pain began 3-4 years ago, but last fall became substantially worse. His PCP referred him to Dr Almanzar, who ordered an MRI, and, per pt, found a bulging disc at L5. Pt was referred to PT, however has had difficulty scheduling appointments, notes it has probable been 2-3 months, and in the mean time, has gotten significantly better with a combination of steroid injections and using gabapentin. Pt is now 2-3/10, down from 7-8/10. Notes he frequently has to change positions, going from sitting to standing and back after ~30 minutes. Notes he is unable to lay in any position except for left sidelying due to back pain. Treatment Goals Patient/Caregiver Goals I want to be able to geet out in the yard and do some work without worrying about back pain. PT-OP-C Subjective Start: 10/20/21 17:32 Freq: Status: Active Protocol: Document 11/04/21 16:45 DCW (Rec: 11/04/21 17:30 DCW [id number]) OP-PT Subjective Patient Comments Patient Comments I'm pretty sore, that last one was rough PT-OP-F Manual Assessment Start: 10/20/21 17:32 Freq: Status: Active Protocol: Document 10/20/21 16:45 DCW (Rec: 10/20/21 17:51 DCW [id number]) Manual Assessments Soft Tissue Assessment Soft Tissue Mobility Assessment Hypertonia and tenderness to palpation 2/4: Pain with wincing at R QL, R lumbar paraspinals PT-OP-K Range of Motion Start: 10/20/21 17:32 Freq: Status: Active Protocol: Document 10/20/21 16:45 DCW (Rec: 10/20/21 17:51 DCW [id number]) Lumbar Spine Range of Motion Lumbar Spine Active Degrees Testing Position Standing Flexion 55 Extension 30 Lateral Flexion Left 49 Lateral Flexion Right 57 Comments Lateral flexion measured in cm from fingertips to floor PT-OP-L Special Tests Start: 10/20/21 17:32 Freq: Status: Active Protocol: Document 10/20/21 16:45 DCW (Rec: 10/20/21 17:51 DCW [id number]) Special Tests Lumbar Spine Special Tests EMILY Test Results Negative Straight Leg Raise Test Results Negative Slump Test Results Positive R Manual Traction Test Results Immediate pain relief Compression Test Results Positive R A-P Shearing Test Results Negative PT-OP-M Strength Start: 10/20/21 17:32 Freq: Status: Active Protocol: Document 10/20/21 16:45 DCW (Rec: 10/20/21 17:51 DCW [id number]) Hip Strength Hip Manual Muscle Testing Right Flexion (L2) 4- Good- Abduction 4+ Good+ Adduction 4- Good- External Rotation 4+ Good+ Internal Rotation 5 Normal Comments C/o pain with resisted R flexion and ER Left Flexion (L2) 4+ Good+ Abduction 4+ Good+ Adduction 4 Good External Rotation 5 Normal Internal Rotation 5 Normal PT-OP-Q Treatments Start: 10/20/21 17:32 Freq: Status: Active Protocol: Document 11/04/21 16:45 DCW (Rec: 11/04/21 17:30 DCW [id number]) Cardio Equipment Recumbent Elliptical ([employer]) Duration (Minutes) 5 Resistance 6 Seat Position 10 Gym Equipment Shuttle Recovery Unilateral Squats Resistance 62# Shuttle Recovery Platform Stable Bilateral Squats Resistance 100# Shuttle Recovery Platform Stable Therapeutic Ball 3 Exercise Details Resisted hip/knee flexion Ball Size/Color Red - 55 cm Lv 3 T-band 2 Exercise Details Bridging /c feet on ball Ball Size/Color Red - 55 cm 1 Exercise Details LTR Ball Size/Color Red - 55 cm Body Position Supine Therapeutic Exercises Supine Exercises 2 Supine Exercise Name Bridging /c add ball squeeze 1 Supine Exercise Name Foam Roll Comments Pec stretch, Opposite UE/LE lifts Manual Therapy Treatment Soft Tissue Mobilization 1 Body Location R QL Mobilization Type Sustained Pressure,Trigger Point Release Intensity/Depth Moderate Body Position Sidelying PT-OP-T Assessment and Plan Start: 10/20/21 17:32 Freq: Status: Active Protocol: Document 11/04/21 16:45 DCW (Rec: 11/04/21 17:30 DCW [id number]) Physical Therapy Assessment Impairments Impairments Activity Tolerance,Functional Activities,Functional Mobility ,Pain,ROM,Soft Tissue Mobility ,Strength,Tone Goals Two Impairment Pt has to change postions every 30-45 minutes due to pain Penitentiary Goal (LTG) Pt to be able to tolerate standing for >2 hours in order to perform yard work LTG Duration 12/21/21 One Impairment Pt does not have an appropriate home exercise program Short Term Goal (STG) Pt to be independent and compliant with an appropriate HEP STG Duration 11/20/21 Assessment Summary Assessment Doing well today, tolerating treatment without complaints. Still fatiguing somewhat quickly, but putting in good effort. Physical Therapy Plan Frequency and Duration Frequency of Treatment 2x/Week Duration of Treatment Two months Plan of Care Start Date 10/20/21 Plan of Care End Date 12/20/21 Therapeutic Interventions Therapeutic Interventions Aquatic Therapy,Home Exercise Program,Joint Mobilizations, Manual Therapy,Neuromuscular Re-education,Patient/Caregiver Education,Self-Care/Home Management,Soft Tissue Mobilization,Therapeutic Activities,Therapeutic Exercises Modalities Cold Pack/Ice Massage,Electric Stimulation,Hot Packs, Traction- Mechanical, Ultrasound Next Visit Focus/Plan Next Note Type Treatment Note Next Visit Plan LE/core strengthening, lumbar traction
--- NOTE | 2022-05-16 11:38 | PT.OPDS ---
Current Diagnoses Stiffness of other specified joint, not elsewhere classified (11/04/21) Sciatica, right side (11/04/21) Visit Care Team Role Provider Type Jey Rothman MD Attending Provider Physician Family Provider Primary Care Provider Referring Provider Specialty: Internal Medicine Address: [address] [place] [address], [address], [facility] Email: [email or web address] Visit Number Visit Number 5 Discharge Summary PT-OP-B Current Condition Start: 10/20/21 17:32 Freq: Status: Active Protocol: Document 10/20/21 16:45 DCW (Rec: 10/20/21 17:47 DCW [id number]) Current Condition History of Current Condition Onset Date 3-4 year history Current Complaints Low back pain with right sciatica History of Current Condition Pt is a 61 year old male presenting with a multi-year history of low back pain. Pt notes that his pain began 3-4 years ago, but last fall became substantially worse. His PCP referred him to Dr Almanzar, who ordered an MRI, and, per pt, found a bulging disc at L5. Pt was referred to PT, however has had difficulty scheduling appointments, notes it has probable been 2-3 months, and in the mean time, has gotten significantly better with a combination of steroid injections and using gabapentin. Pt is now 2-3/10, down from 7-8/10. Notes he frequently has to change positions, going from sitting to standing and back after ~30 minutes. Notes he is unable to lay in any position except for left sidelying due to back pain. Treatment Goals Patient/Caregiver Goals I want to be able to geet out in the yard and do some work without worrying about back pain. PT-OP-C Subjective Start: 10/20/21 17:32 Freq: Status: Active Protocol: Document 11/04/21 16:45 DCW (Rec: 11/04/21 17:30 DCW [id number]) OP-PT Subjective Patient Comments Patient Comments I'm pretty sore, that last one was rough PT-OP-F Manual Assessment Start: 10/20/21 17:32 Freq: Status: Active Protocol: Document 10/20/21 16:45 DCW (Rec: 10/20/21 17:51 DCW [id number]) Manual Assessments Soft Tissue Assessment Soft Tissue Mobility Assessment Hypertonia and tenderness to palpation 2/4: Pain with wincing at R QL, R lumbar paraspinals PT-OP-K Range of Motion Start: 10/20/21 17:32 Freq: Status: Active Protocol: Document 10/20/21 16:45 DCW (Rec: 10/20/21 17:51 DCW [id number]) Lumbar Spine Range of Motion Lumbar Spine Active Degrees Testing Position Standing Flexion 55 Extension 30 Lateral Flexion Left 49 Lateral Flexion Right 57 Comments Lateral flexion measured in cm from fingertips to floor PT-OP-L Special Tests Start: 10/20/21 17:32 Freq: Status: Active Protocol: Document 10/20/21 16:45 DCW (Rec: 10/20/21 17:51 DCW [id number]) Special Tests Lumbar Spine Special Tests EMILY Test Results Negative Straight Leg Raise Test Results Negative Slump Test Results Positive R Manual Traction Test Results Immediate pain relief Compression Test Results Positive R A-P Shearing Test Results Negative PT-OP-M Strength Start: 10/20/21 17:32 Freq: Status: Active Protocol: Document 10/20/21 16:45 DCW (Rec: 10/20/21 17:51 DCW [id number]) Hip Strength Hip Manual Muscle Testing Right Flexion (L2) 4- Good- Abduction 4+ Good+ Adduction 4- Good- External Rotation 4+ Good+ Internal Rotation 5 Normal Comments C/o pain with resisted R flexion and ER Left Flexion (L2) 4+ Good+ Abduction 4+ Good+ Adduction 4 Good External Rotation 5 Normal Internal Rotation 5 Normal PT-OP-T Assessment and Plan Start: 10/20/21 17:32 Freq: Status: Active Protocol: Document 05/16/22 11:37 DCW (Rec: 05/16/22 11:37 DCW [id number]) Physical Therapy Assessment Assessment Summary Assessment Pt has not been seen in six months. Will discharge at this time. Pt will require a new referral in order to return to skilled therapy. Physical Therapy Plan Discharge Physical Therapy Discharge Reasons No Longer Attending PT
== END 2022-05-17 11:58 | disposition home or self-care (01) ==
LOC: PHYS 16:45
PROVIDERS: Family Provider Student in an Organized Health Care Education/Training Program; PCP Student in an Organized Health Care Education/Training Program; Referring Provider Student in an Organized Health Care Education/Training Program; Visit Provider Student in an Organized Health Care Education/Training Program
DX: M54.31 Sciatica, right side (principal); M25.69 Stiffness of other specified joint, not elsewhere classified
CPT/HCPCS: 97110; 97140; 97161

== ENCOUNTER → 2022-07-14 12:33 | Outpatient (CLI) | payer BC, OTHER, SELFPAY ==
[2022-07-14 13:18] LABS: BUN Creatinine Ratio 23.5 (6-22); Blood Urea Nitrogen 16 mg/dL (9-20); Calcium 9.5 mg/dL (8.4-10.2); Carbon Dioxide 23 mmol/L (22-32); Chloride 101 mmol/L (98-107); Estimated Glomerular Filt Rate > 60 mL/min (>60); Glucose 154 mg/dL (80-110); HEMOLYSIS 19 (0-50); Potassium 3.7 mmol/L (3.4-5.1); Sodium 138 mmol/L (137-145)
[2022-07-14 13:49] LABS: Prostate Specific Antigen Scrn 1.96 ng/mL (0.1-4.0)
[2022-07-14 16:48] LABS: Hep C Virus Ab w/Reflex Quant REACTIVE s/c (NEGATIVE)
== END ==
PROVIDERS: Family Provider Student in an Organized Health Care Education/Training Program; PCP Student in an Organized Health Care Education/Training Program; Referring Provider Student in an Organized Health Care Education/Training Program; Visit Provider Student in an Organized Health Care Education/Training Program
DX: Z12.5 Encounter for screening for malignant neoplasm of prostate (principal); Z11.59 Encounter for screening for other viral diseases; I10 Essential (primary) hypertension
CPT/HCPCS: 36415; 80048; 86803; 87070; 87205; 87252; 87522; G0103

== ENCOUNTER → 2023-08-10 08:38 | Outpatient (CLI) | payer BC, OTHER, SELFPAY ==
[2023-08-10 13:19] LABS: Alanine Aminotransferase 29 IU/L (<50); Albumin 4.3 g/dL (3.5-5.0); Albumin Globulin Ratio 1.5 (1.0-2.8); Alkaline Phosphatase 38 U/L (38-126); BUN Creatinine Ratio 18.8 (6-22); Bilirubin Total 0.6 mg/dL (0.2-1.3); Blood Urea Nitrogen 16 mg/dL (9-20); Calcium 9.7 mg/dL (8.4-10.2); Carbon Dioxide 23 mmol/L (22-32); Chloride 102 mmol/L (98-107); Cholesterol 127 mg/dL (140-199); Estimated Glomerular Filt Rate > 60 mL/min (>60); Globulin 2.9 g/dL (1.7-4.1); Glucose 143 mg/dL (80-110); HDL Cholesterol 30 mg/dL (40-60); HEMOLYSIS < 15 (0-50); LDL Cholesterol Calculated 57 mg/dL (<100); Potassium 3.7 mmol/L (3.4-5.1); Sodium 134 mmol/L (137-145); Total Protein 7.2 g/dL (6.3-8.2); Triglycerides 198 mg/dL (35-150)
[2023-08-10 13:49] LABS: Prostate Specific Antigen Scrn 2.46 ng/mL (0.1-4.0)
[2023-08-10 19:52] LABS: HIV 1 & 2 Ab/Ag 4th Gen Combo NEGATIVE (NEGATIVE)
[2023-08-11 15:08] LABS: Aspartate Aminotransferase 34 IU/L (17-59)
== END ==
PROVIDERS: Family Provider Student in an Organized Health Care Education/Training Program; PCP Family Medicine; Referring Provider Family Medicine; Visit Provider Family Medicine
DX: Z12.5 Encounter for screening for malignant neoplasm of prostate (principal); I10 Essential (primary) hypertension; E78.5 Hyperlipidemia, unspecified
CPT/HCPCS: 36415; 80053; 80061; 87389; G0103

== ENCOUNTER → 2023-08-25 13:25 | Outpatient (CLI) | payer BC, OTHER, SELFPAY ==
--- NOTE | 2023-08-25 13:26 | DI.CT.S_ITS ---
PROCEDURE: CT LUNG LOW DOSE SCREENING INDICATIONS: lung cancer screening TECHNIQUE: Noncontrast 2.0-2.5 mm thick sections acquired from the pulmonary apices to the posterior costophrenic angles. 7 mm thick axial MIP, and 5 mm coronal and sagittal reformats were then acquired. For radiation dose reduction, the following was used: automated exposure control, adjustment of mA and/or kV according to patient size. COMPARISON: [facility], CT, CT LOW DOSE LUNG CA SCREENING, 03/27/2020, 14:19. FINDINGS: Image quality: Diagnostic. Lower Neck: No enlarged lymph nodes. Thyroid: No thyroid nodules which require sonographic follow up, per consensus guidelines. Axillae: No enlarged lymph nodes. Chest Wall: Unremarkable. Bones: Unremarkable. Lungs and Pleura: No pneumothorax or pleural effusions. Previously described 7 x 4 mm nodule in right middle lobe is again seen and is unchanged series 3, image 214. Previously described tiny left upper and lower lobe nodules are again seen measures up to 3 mm in size series 3 images 244 and 266. No new pulmonary nodule is seen. Mild centrilobular emphysema is noted. Scattered scarring/atelectasis in periphery of bilateral lung herman are noted. Heart: Heart size is normal. No pericardial effusion. Thoracic Vessels: The aorta and pulmonary arteries demonstrate normal size. Mild atherosclerotic disease involving left anterior distending artery is seen. Mediastinum and Yandy: No enlarged lymph nodes. Esophagus: No wall thickening. There is a small hiatal hernia. Upper Abdomen: Visualized upper abdomen solid organs and bowel loops appear normal. IMPRESSION: 1. Stable 7 x 4 mm solid nodule in right middle lobe. Stable sub 3 mm nodules in left lower lung field. No new pulmonary nodules are seen. 2. Mild centrilobular emphysema and scattered atelectasis in bilateral lung herman. LUNG-RADS 2, continued annual screening, if eligible. Clinically Significant Non-pulmonary Findings: Mild atherosclerotic calcifications in coronary vessels. Dictated by: Alexi Christiansen M.D. on 08/25/2023 at 15:12 Approved by: Alexi Christiansen M.D. on 08/25/2023 at 15:21
== END ==
LOC: CT 13:25
PROVIDERS: Family Provider Student in an Organized Health Care Education/Training Program; PCP Family Medicine; Referring Provider Family Medicine; Visit Provider Family Medicine
DX: Z12.2 Encounter for screening for malignant neoplasm of respiratory organs (principal); F17.200 Nicotine dependence, unspecified, uncomplicated; R91.8 Other nonspecific abnormal finding of lung field; J43.2 Centrilobular emphysema; J98.11 Atelectasis; I25.10 Atherosclerotic heart disease of native coronary artery without angina pectoris; K44.9 Diaphragmatic hernia without obstruction or gangrene
CPT/HCPCS: 71271

== ENCOUNTER → 2024-08-20 10:04 | Outpatient (CLI) | payer BC, OTHER, SELFPAY ==
[2024-08-20 11:16] LABS: Hemoglobin A1C% w Est Avg Glu 5.8 % (4.0-6.0)
== END ==
PROVIDERS: Family Provider Student in an Organized Health Care Education/Training Program; PCP Family Medicine; Referring Provider Family Medicine; Visit Provider Family Medicine
DX: R73.01 Impaired fasting glucose (principal)
CPT/HCPCS: 36415; 83036

== ENCOUNTER → 2024-08-30 09:29 | Outpatient (CLI) | payer BC, OTHER, SELFPAY ==
[2024-08-30 10:12] LABS: Hematocrit 43.4 % (41-53); Hemoglobin 15.3 g/dL (13.5-17.5); Mean Corpuscular HGB Conc 35.2 % (30-36); Mean Corpuscular Hemoglobin 30.3 PG (26-34); Platelet Count 169 X10^3/uL (150-400); Red Blood Cell Count 5.05 X10^6/uL (4.5-5.9); Red Cell Distribution Width 13.7 % (11.6-14.8); White Blood Cell Count 6.1 X10^3/uL (4.5-11.0)
[2024-08-30 10:27] LABS: Hemoglobin A1C% w Est Avg Glu 5.8 % (4.0-6.0)
[2024-08-30 10:33] LABS: Alanine Aminotransferase 32 IU/L (<50); Albumin 4.3 g/dL (3.5-5.0); Albumin Globulin Ratio 1.9 (1.0-2.8); Alkaline Phosphatase 37 U/L (38-126); Aspartate Aminotransferase 31 IU/L (17-59); BUN Creatinine Ratio 25.6 (6-22); Bilirubin Total 0.5 mg/dL (0.2-1.3); Blood Urea Nitrogen 23 mg/dL (9-20); Calcium 10.4 mg/dL (8.4-10.2); Carbon Dioxide 24 mmol/L (22-32); Chloride 104 mmol/L (98-107); Cholesterol 117 mg/dL (140-199); Estimated Glomerular Filt Rate > 60 mL/min (>60); Globulin 2.3 g/dL (1.7-4.1); Glucose 120 mg/dL (80-110); HDL Cholesterol 34 mg/dL (40-60); HEMOLYSIS < 15 (0-50); LDL Cholesterol Calculated 60 mg/dL (<100); Potassium 3.9 mmol/L (3.4-5.1); Sodium 136 mmol/L (137-145); Total Protein 6.6 g/dL (6.3-8.2); Triglycerides 114 mg/dL (35-150)
[2024-08-30 11:04] LABS: Prostate Specific Antigen Scrn 2.88 ng/mL (0.1-4.0)
== END ==
PROVIDERS: Family Provider Student in an Organized Health Care Education/Training Program; PCP Family Medicine; Referring Provider Family Medicine; Visit Provider Family Medicine
DX: Z00.00 Encounter for general adult medical examination without abnormal findings (principal); Z12.5 Encounter for screening for malignant neoplasm of prostate; I10 Essential (primary) hypertension; D75.1 Secondary polycythemia; E78.5 Hyperlipidemia, unspecified; F17.210 Nicotine dependence, cigarettes, uncomplicated; F17.200 Nicotine dependence, unspecified, uncomplicated
CPT/HCPCS: 36415; 80053; 80061; 83036; 85027; G0103

== ENCOUNTER → 2024-09-27 06:46 | Outpatient (CLI) | payer BC, OTHER, SELFPAY ==
--- NOTE | 2024-09-27 06:46 | DI.US.S_ITS ---
PROCEDURE: US ABD AORTA ANEURYSM SCREEN INDICATIONS: SCREEN TECHNIQUE: Real time scanning was performed of the aorta and iliac arteries, with image documentation. COMPARISON: None. FINDINGS: Aorta: Proximal aortic diameter measures 2.6 cm. Mid-aorta measures 1.7 cm. Distal aortic diameter is 3.6 cm. Iliac arteries: Right common iliac artery measures 1.1 cm. Left common iliac artery measures 1.1 cm. Incidental isoechoic lesion in the left hepatic lobe measures 4.2 x 3.0 x 3 5 cm, previously 3.6 x 2.7 x 3.1 cm. This was previously characterized as a benign hemangioma on MRI from 01/20/2017. IMPRESSION: Distal aortic aneurysm measures 3.6 cm in diameter. Recommend 3 year follow-up ultrasound. Approved by: Rajinder Moeller M.D. on 09/27/2024 at 20:21
--- NOTE | 2024-09-27 06:46 | DI.CT.S_ITS ---
PROCEDURE: CT LUNG LOW DOSE SCREENING INDICATIONS: screening TECHNIQUE: Noncontrast 2.0-2.5 mm thick sections acquired from the pulmonary apices to the posterior costophrenic angles. 7 mm thick axial MIP, and 5 mm coronal and sagittal reformats were then acquired. For radiation dose reduction, the following was used: automated exposure control, adjustment of mA and/or kV according to patient size. COMPARISON: [facility], CT, CT LOW DOSE LUNG CA SCREENING, 03/27/2020, 14:19. [facility], CT, CT LUNG LOW DOSE SCREENING, 08/25/2023, 13:55. FINDINGS: Image quality: Diagnostic. Lower Neck: No enlarged lymph nodes. Thyroid: No thyroid nodules which require sonographic follow up, per consensus guidelines. Axillae: No enlarged lymph nodes. Chest Wall: Unremarkable. Bones: Unremarkable. Lungs and Pleura: Within the right middle lobe, there is again seen a 7 x 4 mm soft tissue nodule, as on series 3, image 207. No significant progression compared to the priors. Numerous additional tiny pulmonary nodules can be seen throughout both lungs, measuring 3 mm, which are similar to priors. No new concerning pulmonary nodule is seen. No focal infiltrates are seen. No pneumothorax or pleural effusions are seen. Mild underlying emphysematous change can be seen. Heart: Heart size is normal. No pericardial effusion. Moderate coronary artery calcification is seen. Thoracic Vessels: The aorta and pulmonary arteries demonstrate normal size. Atherosclerotic calcification is noted. Mediastinum and Yandy: No enlarged lymph nodes. Esophagus: No wall thickening. There is a small hiatal hernia. Upper Abdomen: Visualized upper abdomen solid organs and bowel loops appear normal. IMPRESSION: Stable 7 x 4 mm right middle lobe pulmonary nodule. Additional tiny pulmonary nodules can be seen throughout both lungs, measuring 3 mm. Mild underlying emphysematous change LUNG-RADS 2; continued annual screening, if eligible. Clinically Significant Non-pulmonary Findings: Moderate coronary artery calcification Small hiatal hernia Dictated by: Yung Riggins M.D. on 09/27/2024 at 9:58 Approved by: Yung Riggins M.D. on 09/27/2024 at 10:02
== END ==
PROVIDERS: Family Provider Student in an Organized Health Care Education/Training Program; PCP Family Medicine; Referring Provider Family Medicine; Visit Provider Family Medicine
DX: Z13.6 Encounter for screening for cardiovascular disorders (principal); I71.40 Abdominal aortic aneurysm, without rupture, unspecified; Z12.2 Encounter for screening for malignant neoplasm of respiratory organs; F17.210 Nicotine dependence, cigarettes, uncomplicated; R91.1 Solitary pulmonary nodule; D75.1 Secondary polycythemia; K44.9 Diaphragmatic hernia without obstruction or gangrene; I25.10 Atherosclerotic heart disease of native coronary artery without angina pectoris
CPT/HCPCS: 71271; 76706

== ENCOUNTER → 2024-11-20 15:47 | Outpatient (CLI) | payer BC, OTHER, SELFPAY ==
--- NOTE | 2024-11-20 15:48 | DI.US.S_ITS ---
PROCEDURE: US SOFT TISSUE HEAD AND NECK INDICATIONS: RIGHT SHOULDER TENDER PALPABLE X 3 WEEKS. INCREASING SIZE. TECHNIQUE: Real-time scanning was performed of the neck region of interest, with image documentation. COMPARISON: None. FINDINGS: In the area of concern within right anterior/superior shoulder there is a solid/cystic lesion with calcifications measuring 2.6 x 3.1 x 1.7 cm. No vascularity is seen within the lesion. Irregular borders of the solid portion internally. IMPRESSION: Mixed solid/cystic lesion within the area of concern measuring up to 2.6 cm. This is of uncertain etiology and differential includes both benign and malignant etiologies. Consider MRI shoulder for further evaluation. Dictated by: Aníbal Avina M.D. on 11/20/2024 at 17:32 Approved by: Aníbal Avina M.D. on 11/20/2024 at 17:34
== END ==
LOC: US 15:48
PROVIDERS: PCP Family Medicine; Referring Provider Family Medicine; Visit Provider Family Medicine
DX: M67.411 Ganglion, right shoulder (principal); M67.412 Ganglion, left shoulder
CPT/HCPCS: 76536

== ENCOUNTER → 2024-11-25 19:37 | Outpatient (CLI) | payer BC, OTHER, SELFPAY ==
--- NOTE | 2024-11-25 19:39 | DI.MRI.S_ITS ---
PROCEDURE: MR SHOULDER RT WO CON INDICATIONS: eval of cyst on US - right TECHNIQUE: Noncontrast oblique coronal T2 fast spin echo with fat saturation, oblique sagittal T1 spin echo and T2 fast spin echo with fat saturation, axial T1 spin echo and T2 fast spin echo with fat saturation through the shoulder. COMPARISON: [facility] [place], CR, XR SHOULDER 2+ VIEWS RIGHT, 06/05/2024, 10:22. [facility], US, US SOFT TISSUE HEAD AND NECK, 11/20/2024, 16:37. FINDINGS: Image quality: Excellent. Bones: Red marrow reconversion is present. Insertional cyst formation is present at the expected footprint of the anterior bundle of the supraspinatus/subscapularis at the anterior greater tuberosity (5/14). There is no acute fracture or dislocation. Acromioclavicular joint: Moderate osteoarthritis. There is a type 2 acromion. Subchondral cyst formation is present at the subarticular surface of the distal acromion and clavicle. The joint is also associated with a T1 intermediate, T2 hyperintense 3 cm complex synovial cyst that was identified on the 11/20/2024 ultrasound (7/11; 6/5). Glenohumeral joint: Mild osteoarthritis. There is a small joint effusion with synovial proliferation. There is superior subluxation of the humeral head relative to the glenoid. Labrum: The labrum is normal. Cartilage: There is no significant articular cartilage defect. Subacromial-subdeltoid bursa: There is a large amount of fluid in the subacromial-subdeltoid bursa, likely decompressing from the glenohumeral joint via the rotator cuff pathology noted below. Rotator cuff: Superimposed on severe tendinosis, there is a full-thickness tear of the supraspinatus tendon with proximal tendon retraction to the level of the glenoid (7/13). Superimposed on severe tendinosis, there is a full-thickness tear of the infraspinatus tendons with retraction to the level of the glenoid. Superimposed on moderate tendinosis, there is a high-grade, near full-thickness tear of the cranial subscapularis fibers with critical zone and myotendinous delamination (7/4; 9/18). There is severe teres minor tendinosis. Long head of biceps tendon: There is medial subluxation of the long head of the biceps tendon relative to the bicipital groove. Musculature: There is severe supraspinatus and moderate infraspinatus muscle atrophy. There is mild infraspinatus muscle atrophy. There is moderate fatty replacement of the teres minor without a compressive etiology in the quadrilateral space. Inferior glenohumeral ligaments/Axillary pouch: The axillary pouch is normal in thickness and signal. Coracoclavicular and coracoacromial ligaments: The coracoclavicular and coracoacromial ligaments are normal. Other: Mild edema is present in the acromial head of the deltoid muscle (9/9). IMPRESSION: 1. Full-thickness tear of the supraspinatus tendon with proximal tendon retraction, superimposed on severe tendinosis, and severe muscle atrophy. 2. Full-thickness tear of the infraspinatus tendon with proximal tendon retraction, superimposed on moderate tendinosis, and moderate muscle atrophy. 3. Near full-thickness tear of the cranial subscapularis fibers with resultant medial subluxation of the long head of the biceps tendon, superimposed on moderate tendinosis, and mild muscle atrophy. 4. Subacute-chronic denervation change in the teres minor, superimposed on severe tendinosis. 5. Moderate acromioclavicular osteoarthritis with an associated complex 3 cm synovial cyst. This may be amenable to percutaneous aspiration for therapeutic purposes, although it would be prone to recurrence. 6. Mild glenohumeral osteoarthritis with small joint effusion and synovitis. 7. Red marrow reconversion, a nonspecific finding which can be seen with underlying obesity, anemia, smoking, chronic hypoxemia, high oxygen demand state, or status post GM-CSF therapy, among other etiologies. 8. Mild deltoid muscle strain. Dictated by: Oracio Caceres M.D. on 11/26/2024 at 9:30 Approved by: Oracio Caceres M.D. on 11/26/2024 at 10:14
== END ==
LOC: MRI 19:37
PROVIDERS: PCP Family Medicine; Referring Provider Family Medicine; Visit Provider Family Medicine
DX: M67.411 Ganglion, right shoulder (principal); M75.121 Complete rotator cuff tear or rupture of right shoulder, not specified as traumatic; S46.811A Strain of other muscles, fascia and tendons at shoulder and upper arm level, right arm, initial encounter; M67.412 Ganglion, left shoulder; M19.011 Primary osteoarthritis, right shoulder; M71.311 Other bursal cyst, right shoulder; M65.911 Unspecified synovitis and tenosynovitis, right shoulder
CPT/HCPCS: 73221

== ENCOUNTER → 2024-12-23 15:13 | Outpatient (CLI) | payer BC, OTHER, SELFPAY ==
--- NOTE | 2024-12-23 15:25 | EKG_ITS ---
[address] [address] Test Date: 2024-12-23 Pat Name: Yosi Villasenor Department: [facility] Room: Gender: Male Alteration Hand: MELINA : 1960 Requested By: Order Number: [id number] Reading MD: Americo Martinez Measurements Intervals [place] Rate: 72 P: 63 MD: 206 QRS: 64 QRSD: 104 T: 74 QT: 402 QTc: 440 Interpretive Statements Normal sinus rhythm Electronically Signed On 12-25-2024 16:19:45 PDT by Americo Martinez
[2024-12-23 17:01] LABS: Add Manual Diff / Slide Review NO; Basophils Absolute Auto 100 /uL (0-100); Basophils Percent Auto 1.7 % (0-2); Eosinophils Absolute Auto 200 /uL (0-450); Eosinophils Percent Auto 2.6 % (2-4); Hematocrit 44.1 % (41-53); Hemoglobin 15.4 g/dL (13.5-17.5); Lymphocytes Absolute Auto 1900 /uL (1100-4500); Lymphocytes Percent Auto 32.2 % (25-40); Mean Corpuscular HGB Conc 34.9 % (30-36); Mean Corpuscular Hemoglobin 30.5 PG (26-34); Mean Corpuscular Volume 87.2 fL (80-100); Monocytes Absolute Auto 600 /uL (0-900); Monocytes Percent Auto 9.5 % (3-14); Neutrophils Absolute Auto 3100 /uL (1500-7000); Platelet Count 149 X10^3/uL (150-400); Red Blood Cell Count 5.06 X10^6/uL (4.5-5.9); Red Cell Distribution Width 13.4 % (11.6-14.8); White Blood Cell Count 5.8 X10^3/uL (4.5-11.0)
[2024-12-23 17:40] LABS: Alanine Aminotransferase 29 IU/L (<50); Albumin 4.5 g/dL (3.5-5.0); Albumin Globulin Ratio 1.9 (1.0-2.8); Alkaline Phosphatase 42 U/L (38-126); Aspartate Aminotransferase 31 IU/L (17-59); BUN Creatinine Ratio 21.5 (6-22); Bilirubin Total 0.4 mg/dL (0.2-1.3); Blood Urea Nitrogen 17 mg/dL (9-20); Calcium 9.9 mg/dL (8.4-10.2); Carbon Dioxide 29 mmol/L (22-32); Chloride 99 mmol/L (98-107); Estimated Glomerular Filt Rate > 60 mL/min (>60); Globulin 2.4 g/dL (1.7-4.1); Glucose 126 mg/dL (70-99); HEMOLYSIS < 15 (0-50); Sodium 138 mmol/L (137-145); Total Protein 6.9 g/dL (6.3-8.2)
[2024-12-23 17:51] LABS: Vitamin D 25 Hydroxy (D3) 29.3 ng/mL (30.0-100.0)
[2024-12-24 15:09] LABS: Free Kappa Lt Chains, Serum 19.9 mg/L (3.3-19.4); Free Lambda Lt Chains,Serum 12.1 mg/L (5.7-26.3)
[2024-12-25 07:41] LABS: Parathyroid Hormone Int 16 pg/mL (15-65)
[2024-12-25 12:36] LABS: Alpha-1-Globulin 0.3 g/dL (0.0-0.4); Alpha-2-Globulin 0.8 g/dL (0.4-1.0); Gamma Globulin 0.9 g/dL (0.4-1.8); Globulin Total 2.8 g/dL (2.2-3.9); Protein, Total 6.8 g/dL (6.0-8.5)
== END ==
LOC: RESP 15:20
PROVIDERS: PCP Family Medicine; Referring Provider Orthopaedic Surgery; Visit Provider Orthopaedic Surgery
DX: Z01.818 Encounter for other preprocedural examination (principal); Z01.812 Encounter for preprocedural laboratory examination; E83.52 Hypercalcemia
CPT/HCPCS: 36415; 80053; 82306; 82330; 83883; 83970; 84155; 84165; 85025; 93005

== ENCOUNTER → 2024-12-31 15:16 | Outpatient (CLI) | payer BC, OTHER, SELFPAY ==
--- NOTE | 2024-12-31 15:17 | DI.CT.S_ITS ---
PROCEDURE: CT SHOULDER RIGHT WITHOUT CON INDICATIONS: ROTATOR CUFF ARTHROPATHY RT SHOULDER TECHNIQUE: Noncontrast 0.75 mm thick sections acquired from the acromioclavicular joint to the inferior scapula, with coronal and sagittal reformatting. COMPARISON: [facility], MR, MR SHOULDER RT WO CON, 11/25/2024, 19:49. FINDINGS: Image quality: Excellent. Bones: Moderate acromioclavicular joint osteoarthritic changes are seen with joint space narrowing, subchondral sclerosis and subcortical cystic changes. Mild glenohumeral joint osteoarthritic changes also seen with joint space narrowing and subchondral sclerosis. No acute fracture or dislocation. No suspicious intraosseous lesions. The visualized right ribs are intact. Soft tissues: Superior migration of humeral head in relation to glenoid is seen consistent with MR finding of full-thickness rotator cuff tendon rupture. Moderate to severe rotator cuff muscle atrophy is seen better evaluated on previous MRI study. No abnormal soft tissue calcifications. No gross soft tissue mass or drainable fluid collection. There is moderate glenohumeral joint effusion and subacromial subdeltoid bursal fluid, no definite calcified intra-articular loose bodies. Previous MR finding of possible ganglion cyst over superior aspect of acromioclavicular joint has significantly decreased in size, currently measures up to 1.8 x 0.9 cm in size. IMPRESSION: 1. Moderate acromioclavicular joint osteoarthritis and mild glenohumeral joint osteoarthritis. No acute fracture or dislocation. No suspicious bony lesions. 2. Superior migration of humeral head in relation to glenoid consistent with MR finding of full-thickness rotator cuff tendon rupture. Significant rotator cuff muscle atrophy better evaluated on previous MR study. 3. Moderate joint effusion and subacromial subdeltoid bursal fluid, no calcified intra-articular loose bodies. 4. Interval significant decrease in size of MR finding of possible ganglion cyst over superior aspect of acromioclavicular joint currently measures 1.8 x 0.9 cm in size. No soft tissue mass or drainable fluid collection. Dictated by: Alexi Christiansen M.D. on 01/01/2025 at 12:35 Approved by: Alexi Christiansen M.D. on 01/01/2025 at 12:53
== END ==
PROVIDERS: PCP Family Medicine; Referring Provider Orthopaedic Surgery; Visit Provider Orthopaedic Surgery
DX: M19.011 Primary osteoarthritis, right shoulder (principal); M62.511 Muscle wasting and atrophy, not elsewhere classified, right shoulder; M25.411 Effusion, right shoulder
CPT/HCPCS: 73200